=== PATIENT | male | born 1995 | race Two or more races ===

== ENCOUNTER 2020-01-09 11:55 | Emergency (ER) | payer SELFPAY ==
[~2020-01-09] VITALS: Ht 177.8 cm; Wt 75.0 kg
[2020-01-09] MEDS ORDERED: IV NORMAL SALINE 1000ML BAG 1,000 ML IV ONE (12:15)
[2020-01-09] MEDS ORDERED: FAMOTIDINE 20 MG/2 ML VIAL IVP ONE (12:15)
[2020-01-09] MEDS ORDERED: diphenhydrAMINE 50 MG/ML VIAL IVP ONE ×2 (12:15)
[2020-01-09] MEDS ORDERED: methylPREDNISolone SOD SUCC PF 125 MG/2 ML VIAL. IV ONE (12:15)
--- NOTE | 2020-01-09 12:55 | PHYS DOC ---
Past Medical History Past Medical History: Asthma Smoking Status: Current Some Day Smoker Alcohol Use: None General Adult EDM: Chief Complaint: ALLERGIC REACTION HPI: HPI: Patient is a 24 year old male presenting to the ED with family with a chief complaint of allergic reaction. Patient states that he had a banana smoothie about 30 minutes prior to arrival and he has rash all over his body. Patient does state that he has a history of asthma. Patient denies feeling like his airway is closing. He denies swelling in his tongue or mouth. Patient does complain of rash all over his body. Patient does admit to being an active smoker. Review of Systems: Review of Systems: Constitutional: Denies fever or chills. [] Eyes: Denies change in visual acuity. [] HENT: Denies nasal congestion or sore throat. [] Respiratory: Denies cough or shortness of breath. [] Cardiovascular: Denies chest pain or edema. [] GI: Denies abdominal pain, nausea, vomiting or diarrhea. [] : Denies dysuria. [] Musculoskeletal: Denies back pain or joint pain. [] Integument: Complains of rash all over his body [] Neurologic: Denies headache, focal weakness or sensory changes. [] Heart Score: Risk Factors: Risk Factors: DM, Current or recent (<one month) smoker, HTN, HLP, family history of CAD, obesity. Risk Scores: Score 0 - 3: 2.5% MACE over next 6 weeks - Discharge Home Score 4 - 6: 20.3% MACE over next 6 weeks - Admit for Clinical Observation Score 7 - 10: 72.7% MACE over next 6 weeks - Early Invasive Strategies Current Medications: Current Medications Medications (Trade) Dose Ordered Sig/Wang Start Time Stop Time Status Last Admin Dose Admin Diphenhydramine HCl (Benadryl) 50 mg 1X ONCE 01/09/20 12:15 01/09/20 12:16 DC 01/09/20 12:15 50 MG Famotidine (Pepcid Vial) 20 mg 1X ONCE 01/09/20 12:15 01/09/20 12:16 DC 01/09/20 12:16 20 MG Methylprednisolone Sodium Succinate (SOLU-Medrol 125MG VIAL) 125 mg 1X ONCE 01/09/20 12:15 01/09/20 12:16 DC 6/24/20 12:15 125 MG Sodium Chloride 1,000 ml @ 1,000 mls/hr 1X ONCE 01/09/20 12:15 01/09/20 13:14 01/09/20 12:15 1,000 MLS/HR Allergies: Allergies: Allergies Coded Allergies Type Severity Reaction Last Updated Verified No Known Drug Allergies 01/09/20 No Physical Exam: PE: Constitutional: Well developed, well nourished, no acute distress, non-toxic appearance. [] HENT: Normocephalic, atraumatic Eyes: EOMI Neck: Normal range of motion, Supple Cardiovascular:Heart rate regular rhythm Lungs & Thorax: Bilateral breath sounds clear to auscultation [] Abdomen: Bowel sounds normal, soft, no tenderness Skin: Diffuse blanching hives all over his body Extremities: No tenderness, ROM intact Neurologic: Alert and oriented X 3 Current Patient Data: Vital Signs: Vital Signs Date Time Temp Pulse Resp B/P (MAP) Pulse Ox O2 Delivery O2 Flow Rate FiO2 01/09/20 12:00 97.9 105 16 142/92 (109) 96 Room Air 97.9 EKG: EKG: [] Radiology/Procedures: Radiology/Procedures: [] Course & Med Decision Making: Course & Med Decision Making Patient was given Solu-Medrol 125 mg IV, Benadryl 25 mg IV, Pepcid 20 mg IV. On recheck patient states that he is feeling better. Patient still denies swelling in his throat. Recheck patient after 1/2 hours of him being in the ER. Patient states that the breathing is better. The rash is resolved. Patient and the family are comfortable to be discharged home. Patient will be discharged home on steroids and Pepcid. Discussed results and plan of care with patient. Patient is instructed to follow up with PCP in one to 2 days. Appropriate discharge instructions given to patient to return to the ED or to seek immediate medical evaluation. Patient is instructed to return to the ED if symptoms worsen or if any concerns. Brigette Disclaimer: Brigette Disclaimer: This electronic medical record was generated, in whole or in part, using a voice recognition dictation system. Departure Departure Impression: Primary Impression: Allergic reaction Additional Impression: Hives Disposition: HOME, SELF-CARE Condition: STABLE Referrals: NO PCP (PCP) Patient Instructions: Food Allergy, Hives Additional Instructions: Discussed results and plan of care with patient. Patient is instructed to follow up with PCP in one to 2 days. Appropriate discharge instructions given to patient to return to the ED or to seek immediate medical evaluation. Patient is instructed to return to the ED if symptoms worsen or if any concerns. Scripts Famotidine (PEPCID) 20 Mg Tablet 20 MG PO DAILY, #5 TAB Prov: ELDER WHIPPLE DO 01/09/20 Prednisone (PREDNISONE) 20 Mg Tablet 2 TAB PO DAILY for 5 Days, #10 TAB Prov: ELDER WHIPPLE DO 01/09/20 Justicifation of Admission Dx: Justifications for Admission: Justification of Admission Dx: No ELDER WHIPPLE DO Jan 09, 2020 12:55
[2020-01-09] MEDS ORDERED: FAMO-63 PO (13:39)
[2020-01-09] MEDS ORDERED: PRED20TA PO (13:39)
[2020-01-09 13:45] VITALS: BP 122/65
== END 2020-01-09 13:59 | disposition home or self-care (01) ==
LOC: ER 11:55
DX: L50.0 Allergic urticaria (principal); J45.909 Unspecified asthma, uncomplicated; F17.200 Nicotine dependence, unspecified, uncomplicated
CPT/HCPCS: 96374; 96375; 99284; J1200; J2930; J3490; J7030

== ENCOUNTER 2020-03-06 04:00 | Emergency (ER) | payer SELFPAY ==
[~2020-03-06] VITALS: Ht 175.3 cm; Wt 77.2 kg
[~2020-03-06 04:00] MED LIST: FAMO-63 PO; PRED20TA PO
[2020-03-06] MEDS ORDERED: IV NORMAL SALINE 500ML BAG 500 ML IV ONE (05:30)
[2020-03-06] MEDS ORDERED: METOCLOPRAMIDE HCL 10 MG/2 ML VIAL. IVP ONE (05:30)
[2020-03-06] MEDS ORDERED: KETOROLAC 30 MG/ML VIAL. IVP ONE (05:30)
[2020-03-06] MEDS ORDERED: diphenhydrAMINE 50 MG/ML VIAL IVP ONE (05:30)
[2020-03-06] MEDS ORDERED: MAGNESIUM SULFATE 1GM 100 ML IV ONE (05:30)
[2020-03-06] MEDS ORDERED: FAMOTIDINE 20 MG TABLET. PO ONE (05:30)
[2020-03-06] MEDS ORDERED: MAG HYDROX/ALUMINUM HYD/SIMETH 30 ML ORAL.SUSP PO ONE (05:30)
--- NOTE | 2020-03-06 05:37 | PHYS DOC ---
Past Medical History Past Medical History: Asthma (MAVERICK CHANG MD) Past Surgical History: Tonsillectomy (MAVERICK CHANG MD) Smoking Status: Never Smoker Alcohol Use: Occasionally (MAVERICK CHANG MD) General Adult EDM: Chief Complaint: MULTIPLE COMPLAINTS HPI: HPI: Patient is a 24 year old male who presents with multiple complaints. Patient stated that he [place] the mall on Tuesday and he got dizzy which he described as presyncopal. He never did pass out and noted that he just kind of felt drained. He went home and took a nap and when he woke up he noted that he started to have a cough. In addition he woke up with a sore throat described as a burning sensation as well as a burning sensation in his chest. Patient reports he has had some stomach upset in the last couple of days similar to what he is having now with mild nausea. Patient and reports that the chest pain is constant has been present since 8:00 yesterday and seems to wax and wane. Patient denied shortness of breath but says that he feels like he cannot take a deep breath at times. He denied any vomiting but complained of nausea. He complained of a headache that was bilateral so, throbbing, associated with photophobia and nausea. Patient reports he has had headaches like this in the past. No melena or hematochezia, denies change in urination or any neurological changes. (MAVERICK CHANG MD) Review of Systems: Review of Systems: Constitutional: Denies fever or chills. [] Eyes: Denies change in visual acuity. [] HENT: See HPI [] Respiratory: See HPI. [] Cardiovascular: See HPI. [] GI: See HPI. [] : Denies dysuria. [] Musculoskeletal: Denies back pain or joint pain. [] Integument: Denies rash. [] Neurologic: Denies focal weakness or sensory changes. [] Endocrine: Denies polyuria or polydipsia. [] Lymphatic: Denies swollen glands. [] Psychiatric: Denies depression or anxiety. [] (MAVERICK CHANG MD) Heart Score: Risk Factors: Risk Factors: DM, Current or recent (<one month) smoker, HTN, HLP, family history of CAD, obesity. Risk Scores: Score 0 - 3: 2.5% MACE over next 6 weeks - Discharge Home Score 4 - 6: 20.3% MACE over next 6 weeks - Admit for Clinical Observation Score 7 - 10: 72.7% MACE over next 6 weeks - Early Invasive Strategies (MAVERICK CHANG MD) Current Medications: Current Medications Medications (Trade) Dose Ordered Sig/Wang Start Time Stop Time Status Last Admin Dose Admin Al Hydroxide/Mg Hydroxide (Mylanta Plus Xs) 30 ml 1X ONCE 03/06/20 05:30 03/06/20 05:31 DC Diphenhydramine HCl (Benadryl) 25 mg 1X ONCE 03/06/20 05:30 03/06/20 05:31 DC Famotidine (Pepcid) 20 mg 1X ONCE 03/06/20 05:30 03/06/20 05:31 DC Ketorolac Tromethamine (Toradol 30mg Vial) 30 mg 1X ONCE 03/06/20 05:30 03/06/20 05:31 DC Magnesium Sulfate/ Dextrose 100 ml @ 100 mls/hr 1X ONCE 03/06/20 05:30 03/06/20 06:29 Metoclopramide HCl (Reglan Vial) 10 mg 1X ONCE 03/06/20 05:30 03/06/20 05:31 DC Sodium Chloride 500 ml @ 500 mls/hr 1X ONCE 03/06/20 05:30 03/06/20 06:29 (MAVERICK CHANG MD) Allergies: Allergies: Allergies Coded Allergies Type Severity Reaction Last Updated Verified No Known Drug Allergies 01/09/20 No (MAVERICK CHANG MD) Physical Exam: PE: Constitutional: Well developed, well nourished, no acute distress, non-toxic appearance. [] HENT: Normocephalic, atraumatic, bilateral external ears normal, oropharynx moist, no oral exudates, nose normal. [] Eyes: PERRLA, EOMI, conjunctiva normal, no discharge. [] Neck: Normal range of motion, no tenderness, supple, no stridor. [] Cardiovascular:Heart rate regular rhythm, no murmur [] Lungs & Thorax: Bilateral breath sounds clear to auscultation [] Abdomen: Bowel sounds normal, soft, no tenderness, no masses, no pulsatile masses. [] Skin: Warm, dry, no erythema, no rash. [] Back: No tenderness, no CVA tenderness. [] Extremities: No tenderness, no cyanosis, no clubbing, ROM intact, no edema. [] Neurologic: Alert and oriented X 3, normal motor function, normal sensory function, no focal deficits noted. [] Psychologic: Affect normal, judgement normal, mood normal. [] (MAVERICK CHANG MD) Current Patient Data: Vital Signs: Vital Signs Date Time Temp Pulse Resp B/P (MAP) Pulse Ox O2 Delivery O2 Flow Rate FiO2 03/06/20 04:20 99.9 88 20 138/83 (101) 100 Room Air 99.9 (MAVERICK CHANG MD) EKG: EKG: [] (MAVERICK CHANG MD) EKG: Sinus rhythm at 69 bpm, no axis deviation, normal intervals, no T wave inversions, no ST elevations or ST depressions (HARJIT GARDNER DO) Radiology/Procedures: Radiology/Procedures: [] (MAVERCIK CHANG MD) Radiology/Procedures: IMAGING REPORT Signed PATIENT: TANA RM ACCOUNT: [id number] : 1995 LOCATION: ER AGE: 24 SEX: M EXAM STATUS: REG ER ORD. PHYSICIAN: MAVERICK CHANG MD REASON: CP PROCEDURE: CHEST AP ONLY INDICATION: Reason: CP / Spl. Instructions: / History: COMPARISON: None. FINDINGS: Single view of chest obtained. Cardiac silhouette is near the upper limits of normal in size. No definite focal consolidation or edema IMPRESSION: * No focal airspace consolidation or edema. Electronically signed by: Sobeida Lowe MD (03/06/2020 5:48 AM) [id number] DICTATED and SIGNED BY: SOBEIDA LOWE MD DATE: 03/06/20 0548 (HARJIT GARDNER DO) Course & Med Decision Making: Course & Med Decision Making Pertinent Labs and Imaging studies reviewed. (See chart for details) [] (MAVERICK CHANG MD) Course & Med Decision Making Concern for atypical chest pain and migraine headache with sore throat and dry cough x2 days. Lungs clear, no pharyngeal erythema or exudates. Patient states his headache and chest pain is almost fully resolved. Labs with no leukocytosis. Chemistry including a troponin (sxs present for > 6hrs) are negative. D-dimer wnl. CXR with no focal consolidation. Covid test pending. Rapid strep negative. Will DC home with conservative measures, Tylenol, NSAIDs rest and hydration. Work note will be provided for 2 days. Strict ED return precautions given for respiratory distress, severe chest pain or dehydration. Encouraged urgent outpatient follow-up with PMD. Life-threatening processes were considered but are low suspicion at this time, given history and physical exam. Pt was educated on all prescription medications and adverse effects. All patient's questions were answered and pt was stable at time of discharge. Differential includes acute myocardial infarction, aortic dissection, congestive heart failure, esophageal injury including rupture, surgical abdomen, arrhythmia, cardiomyopathy, myocarditis, pericarditis, peptic ulcer disease, pneumomediastinum, pneumonia, pneumothorax, pulmonary embolus, unstable angina, rib fracture, contusion, pericardial tamponade or effusion, pulmonary contusion, ree's angina, peritonsillar abscess, retropharyngeal abscess, epiglottitis, bacterial tracheitis, uvulitis, sepsis, mastoiditis, traumatic injury. I spoken with the patient and her caregivers. I explained the patient's condition, diagnoses and treatment plan based on the information available to me at this time. I have answered the patient and her caregiver's questions and addressed any concerns. The patient and her caregivers have a good understanding of patient's diagnosis, condition and treatment plan as can be expected at this point. Vital signs have been stable. Patient's condition is stable and appropriate for discharge from the emergency department. Patient will pursue further outpatient evaluation with primary care physician or other designated or consulting physician as outlined in the discharge instructions. The patient and/or caregivers are agreeable to this plan of care and follow-up instructions have been explained in detail. The patient and/or caregivers have received these instructions in written form and have expressed an understanding of the discharge instructions. The patient and/or caregivers are aware that any significant change of condition or worsening of symptoms should prompt immediate return to this or the closest emergency department or call to 911. (HARJIT SPRING DO) Dragon Disclaimer: Dragon Disclaimer: This electronic medical record was generated, in whole or in part, using a voice recognition dictation system. (MAVERICK CHANG MD) Departure Departure Impression: Primary Impression: Non-cardiac chest pain Additional Impressions: Common migraine Qualified Codes: G43.009 - Migraine without aura, not intractable, without status migrainosus URI (upper respiratory infection) Disposition: HOME, SELF-CARE Condition: STABLE Referrals: NO PCP (PCP) Patient Instructions: Chest Pain (Nonspecific), Migraine Headache, Upper Respiratory Infection, Adult Additional Instructions: Dr. Jaret Trimble [address], [address] [place] [address] Justicifation of Admission Dx: Justifications for Admission: Justification of Admission Dx: N/A (MAVERICK CHANG MD) Justification of Admission Dx: N/A (HARJIT GARDNER DO) MAVERICK CHANG MD Mar 06, 2020 05:37 HARJIT GARDNER DO Mar 06, 2020 06:45
--- NOTE | 2020-03-06 05:51 | RAD ---
INDICATION: Reason: CP / Spl. Instructions: / History: COMPARISON: None. FINDINGS: Single view of chest obtained. Cardiac silhouette is near the upper limits of normal in size. No definite focal consolidation or edema IMPRESSION: * No focal airspace consolidation or edema. Electronically signed by: Cr Omalley MD (03/06/2020 5:48 AM) [id number]
--- NOTE | 2020-03-06 06:04 | EKG ---
[facility] [address] [place] [address] Test Date: 2020-03-06 Test Time: 05:56:23 Pat Name: TANA RM Department: Room: Gender: M [employer]: : 1995 Requested By: MAVERICK CHANG Order Number: [id number] Reading MD: Measurements Intervals [place] Rate: 69 P: 45 RI: 130 QRS: 48 QRSD: 88 T: 46 QT: 322 QTc: 350 Interpretive Statements SINUS RHYTHM NORMAL ECG RI6.01 No previous ECG available for comparison
[2020-03-06] MEDS ORDERED: ACETAMINOPHEN 325 MG TABLET. PO ONE (06:30)
[2020-03-06 06:53] LABS: CALCIUM 8.8 mg/dL (8.5-10.1); GFR 93.4; POTASSIUM 3.6 mmol/L (3.5-5.1)
[2020-03-06 06:58] LABS: ALBUMIN 3.7 g/dL (3.4-5.0); TOTAL BILIRUBIN 0.2 mg/dL (0.2-1.0); TOTAL PROTEIN 7.5 g/dL (6.4-8.2)
[2020-03-06 06:59] LABS: BASO % 1 % (0-3); EOS # 0.1 x10^3/uL (0.0-0.7); EOS % 2 % (0-3); HEMATOCRIT 45.2 % (39.0-53.0); HEMOGLOBIN 15.5 g/dL (13.0-17.5); LYMPH # 0.9 x10^3/uL (1.0-4.8); LYMPH % 9 % (24-48); MEAN CORPUSCULAR HEMOGLOBIN 31 pg (25-35); MEAN CORPUSCULAR HGB CONC 34 g/dL (31-37); MEAN CORPUSCULAR VOLUME 92 fL (79-100); MONO # 0.7 x10^3/uL (0.0-1.1); MONO % 8 % (0-9); NEUT # 7.6 x10^3/uL (1.8-7.7); NEUT % 81 % (31-73); PLATELET COUNT 318 x10^3/uL (140-400); RED BLOOD COUNT 4.94 x10^6/uL (4.30-5.70); RED CELL DISTRIBUTION WIDTH 13.3 % (11.5-14.5); WHITE BLOOD COUNT 9.4 x10^3/uL (4.0-11.0)
[2020-03-06 08:14] VITALS: BP 115/59
--- NOTE | 2020-03-07 09:35 | NUR ---
IP: Attempted to call to give positive COVID results. Left voicemail to return my call.
--- NOTE | 2020-03-07 09:52 | NUR ---
IP: Pt returned call. Informed him of + COVID results and need to self quarantine for 14 days. Pt verbalized understanding.
== END 2020-03-06 11:00 | disposition home or self-care (01) ==
LOC: ER 04:00
DX: U07.1 COVID-19 (principal); G43.009 Migraine without aura, not intractable, without status migrainosus; R07.89 Other chest pain; J06.9 Acute upper respiratory infection, unspecified; R42 Dizziness and giddiness; R05 Cough; J45.909 Unspecified asthma, uncomplicated; Z90.89 Acquired absence of other organs
CPT/HCPCS: 36415; 71045; 80053; 83690; 84484; 85025; 85379; 87070; 87880; 93005; 96365; 96366; 96375; 99285; C9803; J1200; J1885; J2765; J3475; J7040; U0003

== ENCOUNTER 2020-08-25 05:35 | Emergency (ER) | payer SELFPAY ==
[~2020-08-25] VITALS: Ht 175.3 cm; Wt 77.3 kg
[2020-08-25 05:50] VITALS: BP 147/84
[2020-08-25 06:24] LABS: BARBITURATES NEG (NEG); BENZODIAZEPINES NEG (NEG); CANNABINOIDS NEG (NEG); COCAINE POS (NEG); METHADONE NEG (NEG); OPIATES NEG (NEG); PHENCYCLIDINE NEG (NEG)
[2020-08-25] MEDS ORDERED: HYDR25TA PO (06:25)
--- NOTE | 2020-08-25 06:25 | PHYS DOC ---
Past Medical History Past Medical History: Asthma Past Surgical History: Tonsillectomy Smoking Status: Never Smoker Alcohol Use: Occasionally General Adult EDM: Chief Complaint: OTHER COMPLAINTS HPI: HPI: 25-year-old male who denies any stated past medical history presents the ED with multiple complaints. Patient states around 1 AM on Tuesday he drank half bottle of whiskey, smoked a line of cocaine and smoked 11 cigarettes. States he fell asleep around 2 PM on Tuesday and woke up a few hours ago. Planes of left arm pain, heart racing, tingling in his hands, shaking of UEs, hot face, ringing in his ears and states "I think it is all my head, I cannot get the thoughts to stop going fast, I can't calm down." Reports increased stress, lost his cousin this past week to a motorcycle accident. States he has been taking Tylenol PM for the past week ( 1 tablet, no additional apap). Reports associated decreased appetite. No associated nausea, vomiting, diarrhea or fluid losses. No prior history of anxiety. No suicidal or homicidal ideations, no hallucinations. Review of Systems: Review of Systems: Constitutional: Denies fever or chills. [] Eyes: Denies change in visual acuity. [] HENT: Denies nasal congestion or sore throat. [] Respiratory: Denies cough or shortness of breath. [] Cardiovascular: Denies chest pressure or edema. [] GI: Denies abdominal pain, nausea, vomiting, bloody stools or diarrhea. [] : Denies dysuria. [] Musculoskeletal: Denies back pain or joint pain. [] Integument: Denies rash. [] Neurologic: Denies headache, focal weakness or sensory changes. [] Endocrine: Denies polyuria or polydipsia. [] Lymphatic: Denies swollen glands. [] Psychiatric: Denies depression or anxiety. [] Heart Score: Risk Factors: Risk Factors: DM, Current or recent (<one month) smoker, HTN, HLP, family history of CAD, obesity. Risk Scores: Score 0 - 3: 2.5% MACE over next 6 weeks - Discharge Home Score 4 - 6: 20.3% MACE over next 6 weeks - Admit for Clinical Observation Score 7 - 10: 72.7% MACE over next 6 weeks - Early Invasive Strategies Current Medications: Current Medications Medications (Trade) Dose Ordered Sig/Wang Start Time Stop Time Status Last Admin Dose Admin Lorazepam (Ativan) 0.25 mg 1X ONCE 08/25/20 06:30 08/25/20 06:31 Allergies: Allergies: Allergies Coded Allergies Type Severity Reaction Last Updated Verified No Known Drug Allergies 01/09/20 No Physical Exam: PE: Constitutional: Well developed, well nourished, no acute distress, non-toxic appearance. HENT: Normocephalic, atraumatic, dry mucous membranes Eyes: Mydriatic pupils, EOMI, conjunctiva normal, no discharge. Neck: Normal range of motion, supple, Cardiovascular: S1/2 present, regular rhythm Lungs & Thorax: Speaking in full sentences, bilateral equal chest rise, no tachypnea or increased work of breathing Abdomen: soft, no tenderness, Skin: Warm, dry, no erythema, no rash. [] Extremities: No tenderness, no cyanosis, no edema, tremulous Neurologic: Alert and oriented X 3, normal motor function, normal sensory function, no focal deficits noted. [] Psychologic: Affect normal, judgement normal, mood -very anxious, easily emotional, EKG: EKG: Sinus rhythm at 76 bpm, no axis deviation, normal intervals, no T wave inversions, no ST elevations or ST depressions, patient with no chest pressure, heaviness or tightness, nausea, vomiting, diaphoresis/or jaw pain -patient last used cocaine 16 hours ago Radiology/Procedures: Radiology/Procedures: [] Course & Med Decision Making: Course & Med Decision Making Pertinent Labs and Imaging studies reviewed. (See chart for details) Concern for anxiety versus panic attack versus substance induced mood disorder. Patient hemodynamically stable with no trauma, not a danger to himself. Reports his friend will drive him home. Was given Ativan orally in ED to help with anxiety. Will prescribe Atarax. Was discouraged substance and alcohol abuse that can alter patient's mood. Encourage physical activity and to avoid any caffeine or stimulants. Will discharge home with strict ED return precautions were given for syncope, severe pain, SI, HI or hallucinations. Encouraged urgent outpatient follow-up with PMD and psychiatry for further outpatient care. Life-threatening processes were considered but are low suspicion at this time, given history, physical exam and ED workup. Pt was educated on all prescription medications and adverse effects. All patient's questions were answered and pt was stable at time of discharge. Life/limb-threatening differential includes but is not limited to, end organ damage/sepsis, trauma/abuse/neglect, neurologic deficit, alcohol/drug ingestion, toxidrome, suicidal/homicidal ideations plans or attempts, psychosis or mental illness resulting in self neglect and inability to care for self. I spoken with the patient and her caregivers. I explained the patient's condition, diagnoses and treatment plan based on the information available to me at this time. I have answered the patient and her caregiver's questions and addressed any concerns. The patient and her caregivers have a good understanding of patient's diagnosis, condition and treatment plan as can be expected at this point. Vital signs have been stable. Patient's condition is stable and appropriate for discharge from the emergency department. Patient will pursue further outpatient evaluation with primary care physician or other designated or consulting physician as outlined in the discharge instructions. The patient and/or caregivers are agreeable to this plan of care and follow-up instructions have been explained in detail. The patient and/or caregivers have received these instructions in written form and have expressed an understanding of the discharge instructions. The patient and/or caregivers are aware that any significant change of condition or worsening of symptoms should prompt immediate return to this or the closest emergency department or call to 1. Brigette Disclaimer: Brigette Disclaimer: This electronic medical record was generated, in whole or in part, using a voice recognition dictation system. Departure Departure Impression: Primary Impression: Anxiety Additional Impression: Polysubstance abuse Disposition: 01 DC HOME SELF CARE/HOMELESS Condition: STABLE Referrals: NO PCP (PCP) FOLLOW UP WITH FAMILY MEDICINE: Family Medicine Address: [address] [place] [address] Patient Instructions: Anxiety and Panic Attacks, Mood Disorders, Substance Abuse-Brief Additional Instructions: FOLLOW UP WITH PSYCHIATRY: Dr. Vitor Martin Psychiatry Specialist [address], [place] [address] EMERGENCY DEPARTMENT GENERAL DISCHARGE INSTRUCTIONS Thank you for coming to [facility] Emergency Department (ED) today and trusting us with you care. We trust that you had a positive experience in our Emergency Department. If you wish to speak to the department management, you may call the Director at [phone]. YOUR FOLLOW UP INSTRUCTIONS ARE FOLLOWS: 1. Do you have a private Doctor? If you do not have a private doctor, please ask for a resource list of physicians or clinics that may be able to assist you with follow up care. 2. The Emergency Physicain has interpreted your x-rays. The X-Ray specialist will also review them. If there is a change in the findings, you will be notified in 48 hours when at all possible. 3. A lab test or culture has been done, your results will be reviewed and you will be notified if you need a change in treatment. ADDITIONAL INSTRUCTIONS AND INFORMATION: 1. Your care today has been supervised by a physician who is specially trained in emergency care. Many problems require more than one evaluation for a complete diagnosis and treatment. We recommend that you schedule your follow up appointment as recommended to ensure complete treatment of you illness or injury. If you are unable to obtain follow up care and continue to have a problem, or if your condition worsens, we recommend that you return to the ED. 2. We are not able to safely determine your condition over the phone nor are we able to give sound medical advice over the phone. For these safety reasons, if you call for medical advice we will ask you to come to the ED for further evaluation. 3. If you have any questions regarding these discharge instructions please call the ED at [phone]. SAFETY INFORMATION: In the interest of safety, wellness, and injury prevention; we encourage you to wear your sealbelt, if you smoke; quite smoking, and we encourage family to use a prote ctive helmet for bicycling and other sporting events that present an increased risk for head injury. IF YOUR SYMPTOMS WORSEN OR NEW SYMPTOMS DEVELOP, OR YOU HAVE CONCERNS ABOUT YOUR CONDITION; OR IF YOUR CONDITION WORSENS WHILE YOU ARE WAITING FOR YOUR FOLLOW UP APPOINTMENT; EITHER CONTACT YOUR PRIMARY CARE DOCTOR, THE PHYSICIAN WHOSE NAME AND NUMBER YOU WERE GIVEN, OR RETURN TO THE ED IMMEDIATELY. Scripts Hydroxyzine Hcl (HYDROXYZINE HCL) 25 Mg Tablet 1 TAB PO TID PRN for itching, #20 TAB Prov: HARJIT GARDNER DO 08/25/20 HARJIT GARDNER DO Aug 25, 2020 06:25
[2020-08-25 06:27] LABS: AMPHETAMINE/METHAMPHETAMINE NEG (NEG)
[2020-08-25] MEDS ORDERED: LORazepam 0.5 MG TABLET PO ONE (06:30)
--- NOTE | 2020-08-25 12:08 | EKG ---
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
== END 2020-08-25 06:50 | disposition home or self-care (01) ==
LOC: ER 05:35
DX: F41.8 Other specified anxiety disorders (principal); F19.10 Other psychoactive substance abuse, uncomplicated; J45.909 Unspecified asthma, uncomplicated; Z90.89 Acquired absence of other organs
CPT/HCPCS: 80307; 93005; 99284